=== PATIENT | male | born 1970 | race Caucasian/White ===

== ENCOUNTER 2020-03-15 09:46 | Observation (INO) | payer OTHER ==
[2020-03-15 10:12] VITALS: BMI 22.0
[2020-03-15] MEDS ORDERED: LACTATED RINGERS SOLUTION 1000 ML INFUS.BAG IV ONE ×2 (11:30→13:36)
[2020-03-15 11:34] LABS: BASO % 0.3 % (0-2.0); EOS % 1.7 % (0-4.5); HEMATOCRIT 44.8 % (35.4-49); HEMOGLOBIN 14.6 GM/dL (11.7-16.9); LYMPH % 9.5 % (8-40); MCH 28.7 pg (25.7-33.7); MCHC 32.5 g/dl (32.0-35.9); MEAN CELL VOLUME 88.2 fl (80-96); MEAN PLT VOLUME 9.2 fl (7.5-11.1); MONO % 7.7 % (3.8-10.2); NEUT % 80.8 % (42.8-82.8); PLATELET COUNT 242 K/MM3 (134-434); RBC 5.08 M/mm3 (4.00-5.60); RDW 15.1 % (11.9-15.9); WHITE BLOOD COUNT 11.8 K/mm3 (4.0-10.0)
[2020-03-15 11:55] LABS: CHLORIDE 110 mmol/L (98-107); SODIUM 145 mmol/L (136-145)
[2020-03-15 11:56] LABS: CALCIUM 9.9 mg/dL (8.5-10.1)
[2020-03-15 11:57] LABS: ALBUMIN 3.7 g/dl (3.4-5.0); ANION GAP 4 MMOL/L (8-16); BLOOD UREA NITROGEN 26.4 mg/dL (7-18); CO2 31 mmol/L (21-32); GLUCOSE,RANDOM 121 mg/dL (74-106)
[2020-03-15 12:01] LABS: CREATININE 0.7 mg/dL (0.55-1.3); SGOT/AST 8 U/L (15-37); SGPT/ALT 23 U/L (13-61)
[2020-03-15 12:02] LABS: BILIRUBIN,TOTAL 0.4 mg/dL (0.2-1); TOT PROT 7.9 g/dl (6.4-8.2)
[2020-03-15 12:03] LABS: ALK PHOS 97 U/L (45-117)
[2020-03-15 13:29] LABS: EPI CELLS 9 /uL (0-25.1); HYALINE CASTS 1 /uL (0-3.1); URINE APPEARANCE Error; URINE BACTERIA 596 /uL (0-1359); URINE BILIRUBIN NEGATIVE (NEGATIVE); URINE COLOR YELLOW; URINE GLUCOSE (UA) NEGATIVE (NEGATIVE); URINE KETONE NEGATIVE (NEGATIVE); URINE LEUK ESTERASE TRACE (NEGATIVE); URINE NITRITE NEGATIVE (NEGATIVE); URINE PROTEIN NEGATIVE (NEGATIVE); URINE RBC 7 /uL (0-23.9); URINE WBC 25 /uL (0-25.8)
[2020-03-15] MEDS ORDERED: METOPROLOL TARTRATE 50 MG TABLET (FP) PO ONE (16:14)
[2020-03-15] MEDS ORDERED: METOPROLOL TARTRATE 50 MG TABLET (FP) PEG ONE (16:16)
[2020-03-15] MEDS ORDERED: METOPROLOL TARTRATE 25 MG TABLET (FP) ONE ×2 (16:39→17:11)
[2020-03-16] MEDS: HEPARIN NA (PORCINE) 5,000 UNITS/ML 1ML VIAL SQ SCH ×2 (06:01→13:32)
[2020-03-16] MEDS: ALPRAZolam 0.25 MG TABLET GT SCH ×2 (06:01→13:33)
[2020-03-16 07:37] LABS: BASO % 0.5 % (0-2.0); HEMATOCRIT 40.7 % (35.4-49); LYMPH % 16.3 % (8-40); MCH 28.4 pg (25.7-33.7); MCHC 31.8 g/dl (32.0-35.9); MEAN PLT VOLUME 9.7 fl (7.5-11.1); MONO % 8.4 % (3.8-10.2); NEUT % 72.8 % (42.8-82.8); PLATELET COUNT 221 K/MM3 (134-434); RBC 4.57 M/mm3 (4.00-5.60); RDW 14.9 % (11.9-15.9); WHITE BLOOD COUNT 9.2 K/mm3 (4.0-10.0)
[2020-03-16 07:48] LABS: CHLORIDE 112 mmol/L (98-107); POTASSIUM 3.9 mmol/L (3.5-5.1); SODIUM 147 mmol/L (136-145)
[2020-03-16 07:54] LABS: ALBUMIN 3.1 g/dl (3.4-5.0); ANION GAP 7 MMOL/L (8-16); BLOOD UREA NITROGEN 20.2 mg/dL (7-18); CALCIUM 9.3 mg/dL (8.5-10.1); CO2 28 mmol/L (21-32); GLUCOSE,RANDOM 76 mg/dL (74-106)
[2020-03-16 07:56] LABS: CHOLESTEROL 109 mg/dL (50-200); CREATININE 0.5 mg/dL (0.55-1.3); SGOT/AST 12 U/L (15-37); SGPT/ALT 18 U/L (13-61); TRIGLYCERIDES 66 mg/dL (0-150)
[2020-03-16 07:57] LABS: BILIRUBIN,TOTAL 0.7 mg/dL (0.2-1); LDL CHOLESTEROL (ONLY SJRH) 57 mg/dL (5-100); TOT PROT 6.6 g/dl (6.4-8.2)
[2020-03-16 07:59] LABS: ALK PHOS 71 U/L (45-117); HDL CHOLESTEROL 47 mg/dL (40-60); N-TERMINAL BNP 579.6 pg/ml (5-125)
[2020-03-16] MEDS ORDERED: PT OWN MED DRAWER 7, Y5N ONE ×4 (08:44→10:30)
[2020-03-16 09:37] LABS: CHOLESTEROL 121 mg/dL (50-200); TRIGLYCERIDES 84 mg/dL (0-150)
[2020-03-16 09:39] LABS: LDL CHOLESTEROL (ONLY SJRH) 73 mg/dL (5-100)
[2020-03-16 09:40] LABS: HDL CHOLESTEROL 46 mg/dL (40-60)
[2020-03-16] MEDS ORDERED: MIDODRINE HCL 2.5 MG TABLET GT SCH (10:00)
[2020-03-16] MEDS ORDERED: risperiDONE 1 MG/1 ML ML - 30 ML BOTTLE PEG SCH (10:00)
[2020-03-16] MEDS ORDERED: IPRATROPIUM BR 0.02% 0.5 MG/2.5 ML VIAL.NEB. NEB SCH (10:00)
[2020-03-16] MEDS ORDERED: METOPROLOL TARTRATE 50 MG TABLET (FP) GT SCH (10:00)
[2020-03-16] MEDS ORDERED: FAMOTIDINE 40 MG/5 ML ORAL SUSPENSION NGT SCH (10:00)
[2020-03-16 14:21] VITALS: BP 120/71; PULSE 107; TEMP 98
[2020-03-16] MEDS ORDERED: DOCUSATE NA 100 MG/10 ML UNIT-DOSE CUPS GT SCH (22:00)
[2020-03-16] MEDS ORDERED: ATORVASTATIN CA 80 MG TABLET (FP) GT SCH (22:00)
== END 2020-03-16 15:52 ==
LOC: JER 09:46 → INTOOBSV 18:22 → JERBED 18:22 → J4S 21:30
PROVIDERS: ADMIT Family Medicine; ATTEND Family Medicine
PROC: 3E023GC Introduction of Other Therapeutic Substance into Muscle, Percutaneous Approach (ICD-10-PCS; principal; 2020-03-15)
PROC: 3E0337Z Introduction of Electrolytic and Water Balance Substance into Peripheral Vein, Percutaneous Approach (ICD-10-PCS; 2020-03-15)
DX: Z43.1 Encounter for attention to gastrostomy (principal); J84.10 Pulmonary fibrosis, unspecified; G93.40 Encephalopathy, unspecified; Z86.19 Personal history of other infectious and parasitic diseases; I10 Essential (primary) hypertension; E78.5 Hyperlipidemia, unspecified; E11.9 Type 2 diabetes mellitus without complications; K21.9 Gastro-esophageal reflux disease without esophagitis; R19.7 Diarrhea, unspecified; R20.0 Anesthesia of skin; R00.0 Tachycardia, unspecified; G89.29 Other chronic pain; M25.562 Pain in left knee; Z79.4 Long term (current) use of insulin; Z78.9 Other specified health status; M62.81 Muscle weakness (generalized); Z29.9 Encounter for prophylactic measures, unspecified
CPT/HCPCS: 36415; 49450; 71045-TC-FY; 74176-TC; 80053; 80061; 81003; 82550; 83036; 83721; 83880; 84443; 84484; 85025; 87086; 87186; 93005; 93010; 96360; 96361; 96372; 97116-GP; 97162-GP; 99285-25; C9803; G0378; J1644; U0003

== ENCOUNTER → 2020-08-19 | Day surgery (SDC) | payer OTHER | LOC: JRADIR 11:46 | PROVIDERS: ATTEND Family Medicine | DX: G93.41 Metabolic encephalopathy (principal) | CPT/HCPCS: 49465 ==